=== PATIENT | female | born 1965 | race Caucasian/White ===

== ENCOUNTER 2017-06-29 13:02 | Emergency (ER) | payer OTHER ==
[~2017-06-29] VITALS: Ht 167.6 cm; Wt 92.5 kg
[~2017-06-29 13:02] MED LIST: AMOX-426 PO; HYDR-4023 PO; MECL25TA3 PO; PANT20TA2 PO; PLA200 PO
[2017-06-29 13:04] VITALS: BP_SYST 150
--- NOTE | 2017-06-29 13:05 | NUR ---
Patient to ER bed 2 to gown for evaluation. Side rails up. Report given to Hubert GORDON.
--- NOTE | 2017-06-29 13:06 | NUR ---
ER at bedside examining patient.
--- NOTE | 2017-06-29 13:07 | NUR ---
Pt presents to ER c/o pain to LLE. Pt states that she came from surgery center earlier today, at the facility she was unable to bear full weight on L leg. Pt states that bearing weight causes pain 8/10 to L leg, but when she lays down she denies any pain. No redness or swelling present on L leg, extremity is cool to touch, pt denies SOB or CHEST PAIN. Pt reports history of Lupus and HTN. Pt in no acute distress, respirations even and unlabored, AOX4, allergy to codeine noted, at bedside.
--- NOTE | 2017-06-29 13:15 | NUR ---
Laboratory at bedside for blood draw.
[2017-06-29 13:37] LABS: BASOPHILS % (AUTO) 0.6 % (0.0-2.0); EOSINOPHILS % (AUTO) 0.2 % (0.0-4.0); HEMATOCRIT 42.6 % (36-48); HEMOGLOBIN 14.1 g/dL (12.0-16.0); LYMPHOCYTES # (AUTO) 0.7 K/uL (1.0-5.5); LYMPHOCYTES % (AUTO) 18.2 % (20.5-51.5); MEAN CORPUSCULAR HEMOGLOBIN 30 pg (27-31); MEAN CORPUSCULAR HGB CONC 33 % (32-36); MEAN CORPUSCULAR VOLUME 92 fL (79.0-98.0); MONOCYTES # (AUTO) 0.1 K/uL (0.0-1.0); MONOCYTES % (AUTO) 1.3 % (1.7-9.3); NEUTROPHILS % (AUTO) 79.7 % (40.0-70.0); PLATELET COUNT (AUTO) 312 K/uL (130-430); RED BLOOD CELL COUNT(AUTO) 4.65 MIL/uL (4.2-6.2); RED CELL DISTRIBUTION WIDTH 12.5 % (9.0-15.0); WHITE BLOOD COUNT (AUTO) 3.9 K/uL (4.8-10.8)
[2017-06-29 13:42] LABS: CALCIUM 9.1 mg/dL (8.4-11.0); CREATININE 0.99 mg/dL (0.55-1.30); POTASSIUM 3.3 mmol/L (3.5-5.1)
[2017-06-29 13:45] LABS: PROTHROMBIN TIME 10.3 SECS (9.5-12.5)
[2017-06-29 13:46] LABS: ALBUMIN 3.9 g/dL (3.4-4.8); TOTAL BILIRUBIN 0.9 mg/dL (0.0-1.0)
[2017-06-29 15:05] VITALS: BP_SYST 138
--- NOTE | 2017-06-29 15:05 | NUR ---
Patient given written and verbal discharge instructions and verbalizes understanding. ER MD discussed with patient the results and treatment provided. Patient in stable condition. ID arm band removed. No Rx given. Patient educated on pain management and to follow up with PMD. Pain Scale 5/10 but advised to rest and keep hydrated when she arrives home. Opportunity for questions provided and answered.
== END 2017-06-29 15:05 | disposition home or self-care (01) ==
LOC: SED 13:02
DX: M79.605 Pain in left leg (principal); I10 Essential (primary) hypertension; M32.9 Systemic lupus erythematosus, unspecified; Z88.6 Allergy status to analgesic agent; Z79.899 Other long term (current) drug therapy
CPT/HCPCS: 36415; 80053; 85025; 85610-TC; 85730-TC; 93971; 99285

== ENCOUNTER 2018-12-04 16:18 | Emergency (ER) | payer BC, OTHER ==
[~2018-12-04] VITALS: Ht 167.6 cm; Wt 93.0 kg
[~2018-12-04 16:18] MED LIST changes: +HCT25 PO; -HYDR-4023 PO; +HYDR200T80 PO; -PLA200 PO
[2018-12-04 16:24] VITALS: BP_SYST 163
[2018-12-04] MEDS ORDERED: KETOROLAC TROMETHAMINE 60 MG/2 ML VIAL IM ONE (17:45)
[2018-12-04] MEDS ORDERED: METHOCARBAMOL 500 MG TABLET PO ONE (18:15)
[2018-12-04] MEDS ORDERED: HYDROcodone/ACETAMIN 5-325 MG TAB (NORCO/ VICODIN) PO ONE (18:15)
[2018-12-04 18:20] LABS: BASOPHILS % (AUTO) 0.4 % (0.0-2.0); EOSINOPHILS # (AUTO) 0.1 K/uL (0.0-0.4); EOSINOPHILS % (AUTO) 0.7 % (0.0-4.0); HEMATOCRIT 42.8 % (36-48); HEMOGLOBIN 14.7 g/dL (12.0-16.0); LYMPHOCYTES # (AUTO) 1.5 K/uL (1.0-5.5); LYMPHOCYTES % (AUTO) 21.1 % (20.5-51.5); MEAN CORPUSCULAR HEMOGLOBIN 32 pg (27-31); MEAN CORPUSCULAR HGB CONC 34 % (32-36); MEAN CORPUSCULAR VOLUME 92 fL (79.0-98.0); MONOCYTES # (AUTO) 0.7 K/uL (0.0-1.0); NEUTROPHILS % (AUTO) 68.8 % (40.0-70.0); PLATELET COUNT (AUTO) 299 K/uL (130-430); RED BLOOD CELL COUNT(AUTO) 4.65 MIL/uL (4.2-6.2); RED CELL DISTRIBUTION WIDTH 13.4 % (9.0-15.0); WHITE BLOOD COUNT (AUTO) 7.3 K/uL (4.8-10.8)
[2018-12-04 18:34] LABS: CALCIUM 9.4 mg/dL (8.4-11.0); CREATININE 1.01 mg/dL (0.55-1.30); POTASSIUM 3.5 mmol/L (3.5-5.1)
[2018-12-04 18:39] LABS: ALBUMIN 3.7 g/dL (3.4-4.8); TOTAL BILIRUBIN 0.4 mg/dL (0.0-1.0)
[2018-12-04 19:33] VITALS: BP_SYST 140
== END 2018-12-04 19:33 | disposition home or self-care (01) ==
LOC: SED 16:18
DX: R07.89 Other chest pain (principal); I10 Essential (primary) hypertension; Z90.710 Acquired absence of both cervix and uterus; Z79.899 Other long term (current) drug therapy
CPT/HCPCS: 36415; 71045; 80053; 83880; 84484; 85025; 85379; 96372; 99284; J1885

== ENCOUNTER 2021-02-10 09:00 | Outpatient (CLI) | payer BC ==
[2021-02-10] MEDS ORDERED: BARIUM SULFATE 135 ML SUSP.RECON (E-Z-HD) PO ONE (09:30)
== END 2021-02-10 20:42 | disposition home or self-care (01) ==
LOC: SRD 09:00
PROVIDERS: ATTEND Otolaryngology Plastic Surgery within the Head & Neck
DX: R13.10 Dysphagia, unspecified (principal)
CPT/HCPCS: 74220-TC